=== PATIENT | female | born 1950 | race African-American/Black ===

== ENCOUNTER 2017-05-09 08:08 | Outpatient (CLI) | payer MEDICARE, MEDICAID ==
--- NOTE | 2017-05-09 10:52 | CT ---
ABDOMEN AND PELVIS CT NONCONTRAST: INDICATION: Panniculitis incisional hernia, pain. FINDINGS: Volume loss and/or scarring is seen at the imaged lower lung zones. There is prominence of the regio nal subcutaneous tissues with contact of the CT gantry which produces a prominent degree of beam-hard ening artifact. There is moderate distention of the gallbladder. Incomplete assessment of the solid abdominal viscera without IV contrast. Enteric contrast is seen within the colon and distal small b owel which is nondilated. Nonspecific mild prominence of the proximal aspect of the pancreas. There is retroperitoneal adenopathy. There is ventral herniation of nonobstructed and noninflamed colon at the central abdominal wall. Th ere is overlying edema with regard to surgical incision and surrounding prominent subcutaneous edema and skin thickening may relate to associated cellulitis. No obvious focal drainable fluid collection is seen. There is no pneumoperitoneum. Vascular disease is present. There is scattered osseous de generative change. IMPRESSION: 1. Mild-sized colon containing ventral abdominal wall hernia without associated inflammation or obst ruction. 2. Edema along the ventral abdominal wall incision with surrounding prominent subcutaneous edema and skin thickening. Correlate for evidence of cellulitis. No drainable fluid collection is seen. 3. Prominent soft tissues of the retroperitoneum reflective of adenopathy. There is a prominence to the proximal pancreas, as well. Contrast enhanced CT, as followup is warranted. POS: [facility]
== END 2017-05-09 08:09 | disposition home or self-care (01) ==
LOC: CT 08:08
PROVIDERS: ATTEND Surgery
DX: K43.2 Incisional hernia without obstruction or gangrene (principal); M79.3 Panniculitis, unspecified; R60.9 Edema, unspecified; M79.89 Other specified soft tissue disorders
CPT/HCPCS: 74176

== ENCOUNTER 2017-07-28 08:39 | Outpatient (CLI) | payer MEDICARE, MEDICAID ==
--- NOTE | 2017-07-28 11:27 | CT ---
CT ABDOMEN AND PELVIS WITHOUT IV CONTRAST: Date: 07/28/17 HISTORY: Anemia, right lower quadrant pain. FINDINGS: Comparison made with exam of 08/06/17. Absence of IV contrast reduces the sensitivity of exam, particularly for evaluation of solid organs. Oral contrast was administered. There is beam-hardening artifact due to patient's body habitus, which further reduces the sensitivity of the study. The lung bases are unremarkable. No free air or free fluid is seen in the abdomen or pelvis. No calci fied gallstones are seen. The small bowel loops are not abnormally dilated. There are vascular calcif ications without evidence of aneurysmal dilatation of the abdominal aorta. There are degenerative john nges in the spine. No calculi seen in the kidneys, ureters, or the urinary bladder. No hydroureteronephrosis is seen. Th ere is continued prominence of the region of the head of the pancreas. Retroperitoneal lymphadenopath y is stable. There are vascular calcifications without evidence of aneurysmal dilatation of the abdominal aorta. T here is a small fat-containing ventral hernia. A small portion of the transverse colon was seen herni ating into this hernia on the pervious study, but is not noted on the current exam. There are postop changes in the lower anterior abdominal wall. No definite evidence of appendicitis is seen. IMPRESSION: 1. Continued prominence of the head of the pancreas. Contrast enhanced CT scan or evaluation with en doscopic ultrasound would be helpful. 2. Stable retroperitoneal lymphadenopathy. 3. Small, fat-containing ventral hernia. POS: [facility]
== END 2017-07-28 08:40 | disposition home or self-care (01) ==
LOC: CT 08:39
PROVIDERS: ATTEND Internal Medicine Gastroenterology
DX: K59.03 Drug induced constipation (principal); E66.2 Morbid (severe) obesity with alveolar hypoventilation; K43.9 Ventral hernia without obstruction or gangrene; D64.9 Anemia, unspecified; R59.0 Localized enlarged lymph nodes; R93.3 Abnormal findings on diagnostic imaging of other parts of digestive tract
CPT/HCPCS: 74176

== ENCOUNTER 2020-06-05 13:18 | Inpatient (IN) | payer MEDICARE, MEDICAID ==
[2020-06-05 14:24] LABS: #Lymphocytes 1.2 thou/uL (1.20-3.40); #Monocytes 0.6 thou/uL (0.11-0.59); #Neutrophils 9.2 thou/uL (1.40-6.50); %Basophils 0.1 % (0.0-1.0); %Eosinophils 0.2 % (0.0-10.0); %Lymphocytes 10.7 % (21.0-51.0); %Monocytes 5.2 % (0.0-10.0); %Neutrophils 83.8 % (42.0-75.0); Hemoglobin 10.4 g/dL (12.0-16.0); Mean Corpuscular HGB CONC 30.2 g/dL (32.0-36.0); Mean Corpuscular Hemoglobin 32.4 pg (27.0-31.0); Mean Platelet Volume 8.6 fL (7.4-10.4); Platelet Count 174 thou/uL (130-400); RBC Distribution Width 13.1 % (11.5-14.5); Red Blood Cell (RBC) Count 3.22 mill/uL (4.20-5.40); White Blood Cell (WBC) Count 10.9 thou/uL (4.8-10.8)
[2020-06-05 14:38] LABS: Hypochromia SLIGHT = 6-15 cells (100X) (0-5/hpf); MDiff Complete? YES; Macrocytosis SLIGHT = 6-15 cells (100X) (0-5/hpf); Platelet Morphology Comment Appears Adequate; Polychromasia SLIGHT = 2-3 cells (100X) (0-2/hpf)
[2020-06-05 14:47] LABS: ALT (SGPT) 48 U/L (8-55); AST (SGOT) 89 U/L (5-34); Albumin 3.5 g/dL (3.4-4.8); Alkaline Phosphatase 99 U/L (40-110); Anion Gap 18 mmol/L (10-20); BUN (Urea Nitrogen) 45 mg/dL (9.8-20.1); Bilirubin, Total 0.9 mg/dL (0.2-1.2); Calc. Creatinine Clearance 0 mL/min (70-130); Calcium 9.3 mg/dL (7.8-10.44); Carbon Dioxide 32 mmol/L (23-31); Chloride 97 mmol/L (98-107); Globulin 4.2 g/dL (2.4-3.5); Glucose 99 mg/dL (83-110); Lipase 10 U/L (8-78); Potassium 4.7 mmol/L (3.5-5.1); Protein, Total 7.7 g/dL (5.8-8.1); Sodium 142 mmol/L (136-145)
[2020-06-05 15:03] LABS: Actual Bicarbonate (HCO3v) 30 mEq/L (22-28); Analyzer IN Cardio ER; Calcium, Ionized (venous) 1.02 mmol/L (1.16-1.32); Chloride (VBG) 100 mmol/L (98-106); Hemoglobin (Hb) 12.1 g/dL (11.7-16.1); Potassium (VBG) 4.76 mmol/L (3.70-5.30); Sodium 139.8 mmol/L (133-146); pH (venous) 7.33 (7.32-7.43)
[2020-06-05] MEDS ORDERED: Enoxaparin Sodium 60 MG/0.6 ML SYRINGE ONE (15:19)
[2020-06-05] MEDS ORDERED: Aspirin Chewable 81 MG TAB ONE (15:19)
[2020-06-05] MEDS ORDERED: Furosemide 40 MG/4 ML VIAL ONE (15:19)
[2020-06-05 15:22] LABS: CKMB 16.8 ng/mL (0-6.6)
[2020-06-05 17:36] LABS: SARS-CoV-2 NAA Rapid Test Not Detected (NotDetected)
[2020-06-05] MEDS ORDERED: Nitroglycerin 0.4 MG TAB (25 Tab Bottle) SL PRN (17:41)
[2020-06-05] MEDS ORDERED: Aspirin Chewable 81 MG TAB PO SCH (17:45)
[2020-06-05] MEDS ORDERED: Furosemide 40 MG TAB PO SCH (18:00)
[2020-06-05 18:06] LABS: Troponin I 8.061 ng/mL (< 0.028)
[2020-06-05] MEDS ORDERED: methylPREDNISolone Sod Succ 40 MG VIAL ONE (18:22)
[2020-06-05] MEDS: methylPREDNISolone Sod Succ 40 MG VIAL IVP SCH ×2 (18:28→23:57)
[2020-06-05] MEDS ORDERED: Acetaminophen 325 MG TAB ONE (20:27)
[2020-06-05 20:51] LABS: Troponin I 8.123 ng/mL (< 0.028)
[2020-06-05] MEDS ORDERED: Simvastatin 20 MG TAB PO SCH (21:00)
[2020-06-05] MEDS: Oxybutynin 5 MG TAB PO SCH (23:56)
[2020-06-05] MEDS: Nitroglycerin 2% Ointment 1 INCH/1 GM Packet TOP SCH (23:57)
[2020-06-06] MEDS ORDERED: methylPREDNISolone Sod Succ 40 MG VIAL ONE ×2 (00:01→06:39)
[2020-06-06] MEDS ORDERED: Nitroglycerin 2% Ointment 1 INCH/1 GM Packet ONE ×2 (00:01→06:39)
[2020-06-06] MEDS: Arformoterol 15 MCG/2 ML NEB NEB SCH ×3 (02:26→19:02)
[2020-06-06] MEDS: Mometasone 100 MCG/Formoterol 5 MCG 120 PUFF INHALER INH SCH ×2 (02:26→10:56)
[2020-06-06] MEDS: methylPREDNISolone Sod Succ 40 MG VIAL IVP SCH ×3 (06:45→17:51)
[2020-06-06] MEDS: Nitroglycerin 2% Ointment 1 INCH/1 GM Packet TOP SCH ×3 (06:45→22:47)
[2020-06-06 07:19] LABS: #Lymphocytes 1.1 thou/uL (1.20-3.40); #Monocytes 0.1 thou/uL (0.11-0.59); #Neutrophils 8.6 thou/uL (1.40-6.50); %Basophils 0.2 % (0.0-1.0); %Eosinophils 0.1 % (0.0-10.0); %Lymphocytes 10.8 % (21.0-51.0); %Monocytes 1.3 % (0.0-10.0); %Neutrophils 87.5 % (42.0-75.0); Hemoglobin 10.4 g/dL (12.0-16.0); Mean Corpuscular HGB CONC 30.8 g/dL (32.0-36.0); Mean Corpuscular Hemoglobin 33.1 pg (27.0-31.0); Mean Platelet Volume 8.6 fL (7.4-10.4); Platelet Count 186 thou/uL (130-400); RBC Distribution Width 13.2 % (11.5-14.5); Red Blood Cell (RBC) Count 3.14 mill/uL (4.20-5.40); White Blood Cell (WBC) Count 9.9 thou/uL (4.8-10.8)
[2020-06-06 07:28] LABS: ALT (SGPT) 45 U/L (8-55); AST (SGOT) 61 U/L (5-34); Albumin 3.6 g/dL (3.4-4.8); Alkaline Phosphatase 92 U/L (40-110); Anion Gap 16 mmol/L (10-20); BUN (Urea Nitrogen) 55 mg/dL (9.8-20.1); Bilirubin, Total 0.5 mg/dL (0.2-1.2); Calc. Creatinine Clearance 0 mL/min (70-130); Calcium 9.3 mg/dL (7.8-10.44); Carbon Dioxide 34 mmol/L (23-31); Cardiac Risk 2.7 (Less than 4.5); Chloride 98 mmol/L (98-107); Cholesterol 96 mg/dl (< 200 Desired); Globulin 4.2 g/dL (2.4-3.5); Glucose 127 mg/dL (83-110); HDL Cholesterol 35 mg/dL (>60 Neg Risk); LDL Cholesterol, Calculated 52 mg/dL; Potassium 5.3 mmol/L (3.5-5.1); Protein, Total 7.8 g/dL (5.8-8.1); Sodium 143 mmol/L (136-145); Triglycerides 46 mg/dL (Less than 150)
[2020-06-06] MEDS: Furosemide 20 MG TAB PO SCH (09:55)
[2020-06-06] MEDS: Oxybutynin 5 MG TAB PO SCH ×2 (09:55→22:22)
[2020-06-06] MEDS: Levothyroxine Sodium 75 MCG TAB PO SCH (09:55)
[2020-06-06] MEDS: Gabapentin 400 MG CAP PO SCH (09:56)
[2020-06-06] MEDS: Famotidine 20 MG TAB PO SCH (09:56)
[2020-06-06] MEDS: Allopurinol 100 MG TAB PO SCH (09:56)
[2020-06-06] MEDS ORDERED: Clopidogrel Bisulfate 300 MG TAB PO SCH (10:15)
[2020-06-06 10:28] LABS: Hemoglobin 10.6 g/dL (12.0-16.0); Platelet Count 178 thou/uL (130-400)
[2020-06-06] MEDS ORDERED: Sodium Chloride 0.9% 1,000 ML IV SCH (10:30)
[2020-06-06] MEDS: cefTRIAXone\\ROCEPHIN 1 GM in Sodium Chloride 0.9% 100 ML IVPB SCH (10:33)
[2020-06-06] MEDS: Heparin 10,000 UNITS/ 10 ML VIAL SLOW IVP SCH (11:58)
[2020-06-06] MEDS: Heparin 25,000 units/D5W 500 ML IVPB SCH (12:02)
[2020-06-06 12:49] LABS: CKMB 11.1 ng/mL (0-6.6)
[2020-06-06 12:52] LABS: #Lymphocytes 1.2 thou/uL (1.20-3.40); #Monocytes 0.2 thou/uL (0.11-0.59); #Neutrophils 8.2 thou/uL (1.40-6.50); %Basophils 0.2 % (0.0-1.0); %Eosinophils 0.2 % (0.0-10.0); %Lymphocytes 12.4 % (21.0-51.0); %Monocytes 2.4 % (0.0-10.0); %Neutrophils 84.8 % (42.0-75.0); Hemoglobin 10.7 g/dL (12.0-16.0); Mean Corpuscular Hemoglobin 32.1 pg (27.0-31.0); Mean Platelet Volume 8.7 fL (7.4-10.4); Platelet Count 172 thou/uL (130-400); RBC Distribution Width 13.3 % (11.5-14.5); Red Blood Cell (RBC) Count 3.32 mill/uL (4.20-5.40); White Blood Cell (WBC) Count 9.6 thou/uL (4.8-10.8)
[2020-06-06 13:02] LABS: Anion Gap 22 mmol/L (10-20); BUN (Urea Nitrogen) 55 mg/dL (9.8-20.1); Calc. Creatinine Clearance 52 mL/min (70-130); Calcium 8.9 mg/dL (7.8-10.44); Carbon Dioxide 27 mmol/L (23-31); Chloride 98 mmol/L (98-107); Glucose 127 mg/dL (83-110); Potassium 5.7 mmol/L (3.5-5.1); Sodium 141 mmol/L (136-145)
[2020-06-06 13:10] LABS: Lactic Acid 1.2 mmol/L (0.5-2.2)
[2020-06-06 13:33] LABS: MDiff Complete? YES; Macrocytosis SLIGHT = 6-15 cells (100X) (0-5/hpf); Platelet Morphology Comment Appears Adequate; Polychromasia SLIGHT = 2-3 cells (100X) (0-2/hpf)
[2020-06-06 14:00] LABS: Actual Bicarbonate (HCO3a) 38.3 mEq/L (22-28); Base Excess (BEa) 7.5 mEq/L (-2.0 to +3.0); Calcium, Ionized (arterial) 1.15 mmol/L (1.12-1.30); Carboxyhemoglobin (COHb) 0.8 gm% (0.0-3.0); Hemoglobin (Hb) 11.1 g/dL (12.0-16.0); O2 Tension (PaO2), arterial 103.2 mmHg (> 70.0); Potassium - ABG Lab 5.35 mmol/L (3.70-5.30)
[2020-06-06 14:05] LABS: pH, Arterial 7.21 (7.35-7.45)
[2020-06-06 14:06] LABS: CO2 Tension 98.6 mmHg (35.0-45.0); Puncture Site RBA
[2020-06-06] MEDS ORDERED: Furosemide 40 MG/4 ML VIAL SLOW IVP SCH (14:30)
[2020-06-06 14:35] LABS: Critical Call Chem Troponin I RESULT DECREASING
[2020-06-06 14:40] LABS: Critical Call CKMB RESULT DECREASING
[2020-06-06 16:37] LABS: Actual Bicarbonate (HCO3a) 36.1 mEq/L (22-28); Base Excess (BEa) 6.4 mEq/L (-2.0 to +3.0); Calcium, Ionized (arterial) 1.14 mmol/L (1.12-1.30); Carboxyhemoglobin (COHb) 0.7 gm% (0.0-3.0); Hemoglobin (Hb) 10.7 g/dL (12.0-16.0); Potassium - ABG Lab 5.23 mmol/L (3.70-5.30)
[2020-06-06 16:38] LABS: CO2 Tension 87.4 mmHg (35.0-45.0); pH, Arterial 7.23 (7.35-7.45)
[2020-06-06 16:39] LABS: O2 Tension (PaO2), arterial 55.5 mmHg (> 70.0)
[2020-06-06 16:40] LABS: Puncture Site LRA
[2020-06-06] MEDS ORDERED: Mometasone 200 MCG/Formoterol 5 MCG 120 PUFF INHALER INH SCH (18:30)
[2020-06-06] MEDS: Mometasone 200 MCG/Formoterol 5 MCG 120 PUFF INHALER INH SCH (19:04)
[2020-06-06] MEDS ORDERED: Atorvastatin Calcium 40 MG TAB PO SCH (21:00)
[2020-06-06] MEDS ORDERED: Calcium Gluconate 4.6 MEQ in Sodium Chloride 0.9% 100 ML IVPB SCH (21:55)
[2020-06-07 00:21] LABS: Anion Gap 19 mmol/L (10-20); BUN (Urea Nitrogen) 59 mg/dL (9.8-20.1); Calc. Creatinine Clearance 49 mL/min (70-130); Carbon Dioxide 32 mmol/L (23-31); Chloride 95 mmol/L (98-107); Glucose 124 mg/dL (83-110); Potassium 5.4 mmol/L (3.5-5.1); Sodium 141 mmol/L (136-145)
[2020-06-07] MEDS: methylPREDNISolone Sod Succ 40 MG VIAL IVP SCH ×4 (01:03→18:23)
[2020-06-07] MEDS: Nitroglycerin 2% Ointment 1 INCH/1 GM Packet TOP SCH ×2 (06:31→13:31)
[2020-06-07] MEDS: Levothyroxine Sodium 75 MCG TAB PO SCH (06:31)
[2020-06-07] MEDS: Arformoterol 15 MCG/2 ML NEB NEB SCH ×2 (07:36→18:54)
[2020-06-07] MEDS: Mometasone 200 MCG/Formoterol 5 MCG 120 PUFF INHALER INH SCH ×2 (07:39→18:55)
[2020-06-07] MEDS: Gabapentin 400 MG CAP PO SCH (08:43)
[2020-06-07] MEDS: Allopurinol 100 MG TAB PO SCH (08:43)
[2020-06-07] MEDS: Furosemide 20 MG TAB PO SCH (08:43)
[2020-06-07] MEDS: Aspirin Chewable 81 MG TAB PO SCH (08:44)
[2020-06-07] MEDS: Famotidine 20 MG TAB PO SCH (08:44)
[2020-06-07] MEDS: Oxybutynin 5 MG TAB PO SCH ×2 (08:45→21:03)
[2020-06-07] MEDS ORDERED: Furosemide 20 MG TAB PO SCH (09:00)
[2020-06-07] MEDS ORDERED: Citalopram 20 MG TAB PO SCH (09:00)
[2020-06-07] MEDS ORDERED: FLU VACC QS2020-21(65YR UP)/PF 240 MCG/0.7 ML SYRINGE IM ONE (09:00)
[2020-06-07] MEDS ORDERED: Clopidogrel Bisulfate 75 MG TAB PO SCH (09:00)
[2020-06-07] MEDS ORDERED: Levothyroxine Sodium 50 MCG TAB PO SCH (09:00)
[2020-06-07 09:31] LABS: #Monocytes 0.3 thou/uL (0.11-0.59); #Neutrophils 6.9 thou/uL (1.40-6.50); %Eosinophils 0.1 % (0.0-10.0); %Lymphocytes 12.5 % (21.0-51.0); %Monocytes 3.5 % (0.0-10.0); %Neutrophils 83.9 % (42.0-75.0); Hemoglobin 9.7 g/dL (12.0-16.0); Mean Corpuscular HGB CONC 31.5 g/dL (32.0-36.0); Mean Corpuscular Hemoglobin 32.7 pg (27.0-31.0); Mean Platelet Volume 8.5 fL (7.4-10.4); Platelet Count 176 thou/uL (130-400); RBC Distribution Width 13.1 % (11.5-14.5); Red Blood Cell (RBC) Count 2.95 mill/uL (4.20-5.40); White Blood Cell (WBC) Count 8.2 thou/uL (4.8-10.8)
[2020-06-07 09:45] LABS: Anion Gap 19 mmol/L (10-20); BUN (Urea Nitrogen) 64 mg/dL (9.8-20.1); Calc. Creatinine Clearance 47 mL/min (70-130); Calcium 8.5 mg/dL (7.8-10.44); Carbon Dioxide 29 mmol/L (23-31); Chloride 96 mmol/L (98-107); Glucose 197 mg/dL (83-110); PTT 190.3 sec (22.9-36.1); Sodium 139 mmol/L (136-145)
[2020-06-07 09:55] LABS: MDiff Complete? YES; Platelet Morphology Comment Appears Adequate; Polychromasia SLIGHT = 2-3 cells (100X) (0-2/hpf)
[2020-06-07] MEDS: cefTRIAXone\\ROCEPHIN 1 GM in Sodium Chloride 0.9% 100 ML IVPB SCH (10:15)
[2020-06-07] MEDS: hydrALAZINE 25 MG TAB PO SCH ×2 (15:10→21:03)
[2020-06-07] MEDS: Isosorbide Dinitrate 5 MG TAB PO SCH ×2 (15:10→22:30)
[2020-06-07] MEDS: Carvedilol 3.125 MG TAB PO SCH (17:12)
[2020-06-07] MEDS: Heparin 10,000 UNITS/ 10 ML VIAL SLOW IVP SCH (20:01)
[2020-06-07] MEDS: Heparin 25,000 units/D5W 500 ML IVPB SCH (20:06)
[2020-06-07] MEDS: Atorvastatin Calcium 40 MG TAB PO SCH (21:04)
[2020-06-08] MEDS: methylPREDNISolone Sod Succ 40 MG VIAL IVP SCH ×2 (00:13→05:54)
[2020-06-08] MEDS: Heparin 10,000 UNITS/ 10 ML VIAL SLOW IVP SCH (02:59)
[2020-06-08] MEDS: Levothyroxine Sodium 75 MCG TAB PO SCH (05:54)
[2020-06-08] MEDS: Arformoterol 15 MCG/2 ML NEB NEB SCH ×2 (06:47→19:15)
[2020-06-08] MEDS: Mometasone 200 MCG/Formoterol 5 MCG 120 PUFF INHALER INH SCH ×2 (06:48→19:18)
[2020-06-08] MEDS: Allopurinol 100 MG TAB PO SCH (08:37)
[2020-06-08] MEDS: Famotidine 20 MG TAB PO SCH (08:37)
[2020-06-08] MEDS: Gabapentin 400 MG CAP PO SCH (08:37)
[2020-06-08] MEDS: Carvedilol 3.125 MG TAB PO SCH ×2 (08:38→16:58)
[2020-06-08] MEDS: Isosorbide Dinitrate 5 MG TAB PO SCH (08:38)
[2020-06-08] MEDS: predniSONE 5 MG TAB PO SCH (08:38)
[2020-06-08] MEDS: Furosemide 20 MG TAB PO SCH (08:38)
[2020-06-08] MEDS: Oxybutynin 5 MG TAB PO SCH ×2 (08:38→20:01)
[2020-06-08] MEDS: Aspirin Chewable 81 MG TAB PO SCH (08:38)
[2020-06-08] MEDS: hydrALAZINE 25 MG TAB PO SCH ×3 (08:39→20:01)
[2020-06-08 09:31] LABS: Hemoglobin 9.7 g/dL (12.0-16.0); Platelet Count 190 thou/uL (130-400)
[2020-06-08] MEDS: cefTRIAXone\\ROCEPHIN 1 GM in Sodium Chloride 0.9% 100 ML IVPB SCH (09:42)
[2020-06-08 09:53] LABS: PTT 125.7 sec (22.9-36.1)
[2020-06-08] MEDS: Heparin 25,000 units/D5W 500 ML IVPB SCH (17:38)
[2020-06-08 17:45] LABS: Hemoglobin 9.8 g/dL (12.0-16.0); Mean Corpuscular HGB CONC 30.6 g/dL (32.0-36.0); Mean Corpuscular Hemoglobin 31.7 pg (27.0-31.0); Mean Platelet Volume 8.6 fL (7.4-10.4); Platelet Count 192 thou/uL (130-400); RBC Distribution Width 13.6 % (11.5-14.5); Red Blood Cell (RBC) Count 3.08 mill/uL (4.20-5.40); White Blood Cell (WBC) Count 7.9 thou/uL (4.8-10.8)
[2020-06-08 17:46] LABS: #Lymphocytes 0.9 thou/uL (1.20-3.40); #Monocytes 0.3 thou/uL (0.11-0.59); #Neutrophils 6.7 thou/uL (1.40-6.50); %Eosinophils 0.4 % (0.0-10.0); %Lymphocytes 11.8 % (21.0-51.0); %Monocytes 3.2 % (0.0-10.0); %Neutrophils 84.6 % (42.0-75.0)
[2020-06-08 18:04] LABS: Anion Gap 17 mmol/L (10-20); BUN (Urea Nitrogen) 82 mg/dL (9.8-20.1); Calc. Creatinine Clearance 41 mL/min (70-130); Calcium 8.8 mg/dL (7.8-10.44); Carbon Dioxide 33 mmol/L (23-31); Chloride 94 mmol/L (98-107); Glucose 170 mg/dL (83-110); Potassium 5.5 mmol/L (3.5-5.1); Sodium 138 mmol/L (136-145)
[2020-06-08] MEDS: Atorvastatin Calcium 40 MG TAB PO SCH (20:01)
[2020-06-09 04:13] LABS: Anion Gap 19 mmol/L (10-20); BUN (Urea Nitrogen) 86 mg/dL (9.8-20.1); Calc. Creatinine Clearance 40 mL/min (70-130); Calcium 8.3 mg/dL (7.8-10.44); Carbon Dioxide 29 mmol/L (23-31); Chloride 93 mmol/L (98-107); Glucose 187 mg/dL (83-110); Potassium 5.1 mmol/L (3.5-5.1); Sodium 136 mmol/L (136-145)
[2020-06-09 04:48] LABS: Band 6 % (5-11); Hemoglobin 9.2 g/dL (12.0-16.0); Lymphocytes 15 % (21-51); MDiff Complete? YES; Mean Corpuscular HGB CONC 31.4 g/dL (32.0-36.0); Mean Corpuscular Hemoglobin 32.3 pg (27.0-31.0); Mean Platelet Volume 8.8 fL (7.4-10.4); Monocytes 7 % (0-10); Myelocyte 1 % (0-0); Neutrophil 71 % (42-75); Platelet Count 173 thou/uL (130-400); RBC Distribution Width 13.7 % (11.5-14.5); Red Blood Cell (RBC) Count 2.86 mill/uL (4.20-5.40); White Blood Cell (WBC) Count 7.3 thou/uL (4.8-10.8)
[2020-06-09] MEDS: Levothyroxine Sodium 75 MCG TAB PO SCH (05:55)
[2020-06-09] MEDS: Arformoterol 15 MCG/2 ML NEB NEB SCH ×2 (06:58→19:01)
[2020-06-09] MEDS: Mometasone 200 MCG/Formoterol 5 MCG 120 PUFF INHALER INH SCH ×2 (06:59→19:01)
[2020-06-09] MEDS: Oxybutynin 5 MG TAB PO SCH ×2 (08:30→20:08)
[2020-06-09] MEDS: Allopurinol 100 MG TAB PO SCH (08:30)
[2020-06-09] MEDS: predniSONE 5 MG TAB PO SCH (08:30)
[2020-06-09] MEDS: Gabapentin 400 MG CAP PO SCH (08:30)
[2020-06-09] MEDS: Famotidine 20 MG TAB PO SCH (08:30)
[2020-06-09] MEDS: Aspirin Chewable 81 MG TAB PO SCH (08:30)
[2020-06-09] MEDS: Carvedilol 3.125 MG TAB PO SCH ×2 (08:30→17:13)
[2020-06-09] MEDS: hydrALAZINE 25 MG TAB PO SCH ×3 (08:31→20:07)
[2020-06-09] MEDS: Furosemide 20 MG TAB PO SCH (08:31)
[2020-06-09] MEDS: Heparin 25,000 units/D5W 500 ML IVPB SCH (08:34)
[2020-06-09] MEDS: Atorvastatin Calcium 40 MG TAB PO SCH (20:07)
[2020-06-10 04:04] LABS: Anion Gap 17 mmol/L (10-20); BUN (Urea Nitrogen) 92 mg/dL (9.8-20.1); Calc. Creatinine Clearance 41 mL/min (70-130); Calcium 8.5 mg/dL (7.8-10.44); Carbon Dioxide 30 mmol/L (23-31); Chloride 94 mmol/L (98-107); Glucose 139 mg/dL (83-110); Potassium 4.4 mmol/L (3.5-5.1); Sodium 137 mmol/L (136-145)
[2020-06-10 05:22] LABS: Band 8 % (5-11); Hemoglobin 9.2 g/dL (12.0-16.0); Lymphocytes 25 % (21-51); MDiff Complete? YES; Mean Corpuscular HGB CONC 31.5 g/dL (32.0-36.0); Mean Corpuscular Hemoglobin 32.1 pg (27.0-31.0); Mean Platelet Volume 8.6 fL (7.4-10.4); Monocytes 2 % (0-10); Neutrophil 65 % (42-75); Platelet Count 159 thou/uL (130-400); RBC Distribution Width 13.6 % (11.5-14.5); Red Blood Cell (RBC) Count 2.87 mill/uL (4.20-5.40); White Blood Cell (WBC) Count 9.4 thou/uL (4.8-10.8)
[2020-06-10] MEDS: Levothyroxine Sodium 75 MCG TAB PO SCH (06:10)
[2020-06-10] MEDS: Arformoterol 15 MCG/2 ML NEB NEB SCH ×2 (08:24→18:22)
[2020-06-10] MEDS: Mometasone 200 MCG/Formoterol 5 MCG 120 PUFF INHALER INH SCH ×2 (08:25→18:22)
[2020-06-10] MEDS: Aspirin Chewable 81 MG TAB PO SCH (09:03)
[2020-06-10] MEDS: Oxybutynin 5 MG TAB PO SCH ×2 (09:03→20:02)
[2020-06-10] MEDS: Allopurinol 100 MG TAB PO SCH (09:03)
[2020-06-10] MEDS: Carvedilol 3.125 MG TAB PO SCH ×2 (09:03→18:04)
[2020-06-10] MEDS: Clopidogrel Bisulfate 75 MG TAB PO SCH (09:03)
[2020-06-10] MEDS: Famotidine 20 MG TAB PO SCH (09:03)
[2020-06-10] MEDS: predniSONE 5 MG TAB PO SCH (09:03)
[2020-06-10] MEDS: Furosemide 20 MG TAB PO SCH (09:03)
[2020-06-10] MEDS: hydrALAZINE 25 MG TAB PO SCH ×3 (09:04→20:02)
[2020-06-10] MEDS: Gabapentin 400 MG CAP PO SCH (09:04)
[2020-06-10] MEDS ORDERED: Acetaminophen/Codeine 30-300mg Tablet PO PRN ×2 (13:52)
[2020-06-10] MEDS: Atorvastatin Calcium 10 MG TAB PO SCH (20:02)
[2020-06-11 03:57] LABS: #Eosinphils 0.2 thou/uL (0.0-0.7); #Lymphocytes 1.6 thou/uL (1.20-3.40); #Neutrophils 7.2 thou/uL (1.40-6.50); %Basophils 0.2 % (0.0-1.0); %Eosinophils 1.6 % (0.0-10.0); %Lymphocytes 15.6 % (21.0-51.0); %Monocytes 10.3 % (0.0-10.0); %Neutrophils 72.2 % (42.0-75.0); Hemoglobin 10.5 g/dL (12.0-16.0); Mean Corpuscular HGB CONC 30.6 g/dL (32.0-36.0); Mean Corpuscular Hemoglobin 31.5 pg (27.0-31.0); Mean Platelet Volume 9.2 fL (7.4-10.4); Platelet Count 157 thou/uL (130-400); RBC Distribution Width 13.6 % (11.5-14.5); Red Blood Cell (RBC) Count 3.35 mill/uL (4.20-5.40); White Blood Cell (WBC) Count 9.9 thou/uL (4.8-10.8)
[2020-06-11 04:19] LABS: Anion Gap 19 mmol/L (10-20); BUN (Urea Nitrogen) 93 mg/dL (9.8-20.1); Calc. Creatinine Clearance 41 mL/min (70-130); Calcium 9.2 mg/dL (7.8-10.44); Carbon Dioxide 30 mmol/L (23-31); Chloride 94 mmol/L (98-107); Glucose 101 mg/dL (83-110); Potassium 5.1 mmol/L (3.5-5.1); Sodium 138 mmol/L (136-145)
[2020-06-11] MEDS: cloNIDine 0.1 MG TAB PO PRN (05:10)
[2020-06-11] MEDS: Levothyroxine Sodium 75 MCG TAB PO SCH (05:10)
[2020-06-11] MEDS: Mometasone 200 MCG/Formoterol 5 MCG 120 PUFF INHALER INH SCH ×2 (07:25→18:45)
[2020-06-11] MEDS: Arformoterol 15 MCG/2 ML NEB NEB SCH ×2 (07:25→18:47)
[2020-06-11] MEDS: Allopurinol 100 MG TAB PO SCH (10:05)
[2020-06-11] MEDS: Famotidine 20 MG TAB PO SCH (10:05)
[2020-06-11] MEDS: Gabapentin 400 MG CAP PO SCH (10:05)
[2020-06-11] MEDS: predniSONE 5 MG TAB PO SCH (10:05)
[2020-06-11] MEDS: Cholecalciferol 1,000 UNITS (25 MCG) TAB PO SCH (10:05)
[2020-06-11] MEDS: Carvedilol 3.125 MG TAB PO SCH ×2 (10:06→16:21)
[2020-06-11] MEDS: Oxybutynin 5 MG TAB PO SCH ×2 (10:06→21:25)
[2020-06-11] MEDS: Clopidogrel Bisulfate 75 MG TAB PO SCH (10:06)
[2020-06-11] MEDS: Furosemide 20 MG TAB PO SCH (10:06)
[2020-06-11] MEDS: Aspirin Chewable 81 MG TAB PO SCH (10:06)
[2020-06-11] MEDS: hydrALAZINE 25 MG TAB PO SCH ×3 (10:06→21:25)
[2020-06-11] MEDS: Atorvastatin Calcium 10 MG TAB PO SCH (21:25)
[2020-06-12 04:23] LABS: Anion Gap 17 mmol/L (10-20); BUN (Urea Nitrogen) 92 mg/dL (9.8-20.1); Calc. Creatinine Clearance 42 mL/min (70-130); Calcium 9.1 mg/dL (7.8-10.44); Carbon Dioxide 32 mmol/L (23-31); Chloride 96 mmol/L (98-107); Glucose 87 mg/dL (83-110); Sodium 140 mmol/L (136-145)
[2020-06-12] MEDS: Levothyroxine Sodium 75 MCG TAB PO SCH (06:41)
[2020-06-12 06:57] LABS: #Eosinphils 0.4 thou/uL (0.0-0.7); #Lymphocytes 1.2 thou/uL (1.20-3.40); #Monocytes 0.7 thou/uL (0.11-0.59); #Neutrophils 7.8 thou/uL (1.40-6.50); %Basophils 0.4 % (0.0-1.0); %Eosinophils 3.7 % (0.0-10.0); %Lymphocytes 12.2 % (21.0-51.0); %Monocytes 6.4 % (0.0-10.0); %Neutrophils 77.2 % (42.0-75.0); Hemoglobin 10.1 g/dL (12.0-16.0); Mean Corpuscular HGB CONC 31.4 g/dL (32.0-36.0); Mean Corpuscular Hemoglobin 32.1 pg (27.0-31.0); Mean Platelet Volume 9.1 fL (7.4-10.4); Platelet Count 152 thou/uL (130-400); RBC Distribution Width 13.6 % (11.5-14.5); Red Blood Cell (RBC) Count 3.16 mill/uL (4.20-5.40); White Blood Cell (WBC) Count 10.2 thou/uL (4.8-10.8)
[2020-06-12] MEDS: Mometasone 200 MCG/Formoterol 5 MCG 120 PUFF INHALER INH SCH ×2 (07:28→19:05)
[2020-06-12] MEDS: Arformoterol 15 MCG/2 ML NEB NEB SCH ×2 (07:28→19:05)
[2020-06-12] MEDS ORDERED: Atorvastatin Calcium 10 MG TAB PO SCH ×2 (08:55→09:10)
[2020-06-12] MEDS: Oxybutynin 5 MG TAB PO SCH ×2 (09:25→21:36)
[2020-06-12] MEDS: Famotidine 20 MG TAB PO SCH (09:25)
[2020-06-12] MEDS: hydrALAZINE 25 MG TAB PO SCH ×3 (09:25→21:37)
[2020-06-12] MEDS: Aspirin Chewable 81 MG TAB PO SCH (09:25)
[2020-06-12] MEDS: Carvedilol 3.125 MG TAB PO SCH ×2 (09:25→15:31)
[2020-06-12] MEDS: Furosemide 20 MG TAB PO SCH (09:26)
[2020-06-12] MEDS: Allopurinol 100 MG TAB PO SCH (09:26)
[2020-06-12] MEDS: predniSONE 5 MG TAB PO SCH (09:26)
[2020-06-12] MEDS: Gabapentin 400 MG CAP PO SCH (09:26)
[2020-06-12] MEDS: Clopidogrel Bisulfate 75 MG TAB PO SCH (09:26)
[2020-06-12] MEDS: Cholecalciferol 1,000 UNITS (25 MCG) TAB PO SCH (09:26)
[2020-06-12] MEDS: Atorvastatin Calcium 40 MG TAB PO SCH (21:37)
[2020-06-13] MEDS: Levothyroxine Sodium 75 MCG TAB PO SCH (05:17)
[2020-06-13 06:49] LABS: Anion Gap 17 mmol/L (10-20); BUN (Urea Nitrogen) 91 mg/dL (9.8-20.1); Calc. Creatinine Clearance 42 mL/min (70-130); Calcium 9.1 mg/dL (7.8-10.44); Carbon Dioxide 31 mmol/L (23-31); Chloride 97 mmol/L (98-107); Glucose 110 mg/dL (83-110); Potassium 4.8 mmol/L (3.5-5.1); Sodium 140 mmol/L (136-145)
[2020-06-13 06:51] LABS: #Eosinphils 0.4 thou/uL (0.0-0.7); #Lymphocytes 1.4 thou/uL (1.20-3.40); #Monocytes 0.4 thou/uL (0.11-0.59); #Neutrophils 9.5 thou/uL (1.40-6.50); %Basophils 0.1 % (0.0-1.0); %Eosinophils 3.6 % (0.0-10.0); %Lymphocytes 11.7 % (21.0-51.0); %Monocytes 3.7 % (0.0-10.0); %Neutrophils 80.8 % (42.0-75.0); Eosinophils 2 % (0-10); Hemoglobin 9.9 g/dL (12.0-16.0); Lymphocytes 13 % (21-51); MDiff Complete? YES; Mean Corpuscular HGB CONC 31.2 g/dL (32.0-36.0); Mean Corpuscular Hemoglobin 31.8 pg (27.0-31.0); Mean Platelet Volume 9.2 fL (7.4-10.4); Monocytes 14 % (0-10); Neutrophil 71 % (42-75); Platelet Count 148 thou/uL (130-400); RBC Distribution Width 13.9 % (11.5-14.5); Red Blood Cell (RBC) Count 3.09 mill/uL (4.20-5.40); White Blood Cell (WBC) Count 11.8 thou/uL (4.8-10.8)
[2020-06-13] MEDS: Arformoterol 15 MCG/2 ML NEB NEB SCH ×2 (07:51→19:29)
[2020-06-13] MEDS: Mometasone 200 MCG/Formoterol 5 MCG 120 PUFF INHALER INH SCH ×2 (07:52→19:30)
[2020-06-13] MEDS: Aspirin Chewable 81 MG TAB PO SCH (08:44)
[2020-06-13] MEDS: Gabapentin 400 MG CAP PO SCH (08:44)
[2020-06-13] MEDS: Famotidine 20 MG TAB PO SCH (08:44)
[2020-06-13] MEDS: Cholecalciferol 1,000 UNITS (25 MCG) TAB PO SCH (08:44)
[2020-06-13] MEDS: Oxybutynin 5 MG TAB PO SCH ×2 (08:45→20:53)
[2020-06-13] MEDS: Allopurinol 100 MG TAB PO SCH (08:45)
[2020-06-13] MEDS: predniSONE 5 MG TAB PO SCH (08:45)
[2020-06-13] MEDS: Carvedilol 3.125 MG TAB PO SCH ×2 (08:45→16:31)
[2020-06-13] MEDS: Clopidogrel Bisulfate 75 MG TAB PO SCH (08:45)
[2020-06-13] MEDS: Furosemide 20 MG TAB PO SCH (08:45)
[2020-06-13] MEDS: hydrALAZINE 25 MG TAB PO SCH ×3 (08:45→20:53)
[2020-06-13] MEDS ORDERED: Tuberculin PPD 0.1 ML VIAL I-DERMAL SCH (11:30)
[2020-06-13 12:03] LABS: HBSAB Concentration Less than 8.00 mIU/mL; HBSAg Index 0.21 S/CO (0-0.99); Hep B Core Total Ab Non-Reactive (NonReactive); Hep B Core Total Index 0.07 S/CO (0-0.79); Hep B Surf AB Non-Reactive (NonReactive); Hep B Surf Ag Non-Reactive S/CO (NonReactive); Hep C IgG Ab Non-Reactive (NonReactive); Hep C Index 0.07 S/CO (0-0.79)
[2020-06-13] MEDS ORDERED: CEFAZOLIN 2 GM in Premix Bag 1 BAG IVPB SCH (13:45)
[2020-06-13] MEDS: Atorvastatin Calcium 40 MG TAB PO SCH (20:53)
[2020-06-14] MEDS: Carvedilol 3.125 MG TAB PO SCH ×2 (05:45→17:26)
[2020-06-14] MEDS: Levothyroxine Sodium 75 MCG TAB PO SCH (05:45)
[2020-06-14 06:02] LABS: #Eosinphils 0.5 thou/uL (0.0-0.7); #Lymphocytes 1.4 thou/uL (1.20-3.40); #Monocytes 0.6 thou/uL (0.11-0.59); #Neutrophils 8.4 thou/uL (1.40-6.50); %Basophils 0.1 % (0.0-1.0); %Eosinophils 4.4 % (0.0-10.0); %Lymphocytes 12.9 % (21.0-51.0); %Monocytes 5.6 % (0.0-10.0); Hemoglobin 10.2 g/dL (12.0-16.0); Mean Corpuscular HGB CONC 31.2 g/dL (32.0-36.0); Mean Platelet Volume 9.3 fL (7.4-10.4); Platelet Count 163 thou/uL (130-400); RBC Distribution Width 13.7 % (11.5-14.5); Red Blood Cell (RBC) Count 3.18 mill/uL (4.20-5.40); White Blood Cell (WBC) Count 10.9 thou/uL (4.8-10.8)
[2020-06-14 06:22] LABS: Anion Gap 14 mmol/L (10-20); BUN (Urea Nitrogen) 85 mg/dL (9.8-20.1); Calc. Creatinine Clearance 44 mL/min (70-130); Calcium 9.4 mg/dL (7.8-10.44); Carbon Dioxide 34 mmol/L (23-31); Chloride 97 mmol/L (98-107); Glucose 100 mg/dL (83-110); Potassium 4.9 mmol/L (3.5-5.1); Sodium 140 mmol/L (136-145)
[2020-06-14] MEDS: Mometasone 200 MCG/Formoterol 5 MCG 120 PUFF INHALER INH SCH ×2 (07:40→18:17)
[2020-06-14] MEDS: Arformoterol 15 MCG/2 ML NEB NEB SCH ×2 (07:41→18:16)
[2020-06-14] MEDS: predniSONE 5 MG TAB PO SCH (11:02)
[2020-06-14] MEDS: Allopurinol 100 MG TAB PO SCH (11:02)
[2020-06-14] MEDS: Clopidogrel Bisulfate 75 MG TAB PO SCH (11:03)
[2020-06-14] MEDS: Cholecalciferol 1,000 UNITS (25 MCG) TAB PO SCH (11:03)
[2020-06-14] MEDS: Aspirin Chewable 81 MG TAB PO SCH (11:03)
[2020-06-14] MEDS: Gabapentin 400 MG CAP PO SCH (11:04)
[2020-06-14] MEDS: Famotidine 20 MG TAB PO SCH (11:04)
[2020-06-14] MEDS: Furosemide 20 MG TAB PO SCH (11:04)
[2020-06-14] MEDS: Oxybutynin 5 MG TAB PO SCH ×2 (11:05→22:44)
[2020-06-14] MEDS: hydrALAZINE 25 MG TAB PO SCH ×3 (11:05→22:44)
[2020-06-14] MEDS ORDERED: Heparin 10,000 UNITS/ 10 ML VIAL ONE ×2 (14:23→14:49)
[2020-06-14] MEDS ORDERED: Bupivacaine PF 0.5% 30 ML VIAL ONE (14:49)
[2020-06-14] MEDS ORDERED: Heparin 5,000 UNITS/ML VIAL ONE (14:49)
[2020-06-14] MEDS ORDERED: Sodium Chloride 0.9% 20 ML ONE (14:49)
[2020-06-14] MEDS ORDERED: Protamine Sulfate 50 MG/5 ML VIAL ONE (14:49)
[2020-06-14] MEDS ORDERED: Lidocaine 1% w/Epinephrine 1:100K 20 ML VIAL ONE (14:49)
[2020-06-14] MEDS ORDERED: Sodium Chloride 0.9% 10 ML ONE (14:50)
[2020-06-14] MEDS ORDERED: Midazolam HCl 2 mg/2 ml Vial ONE (16:25)
[2020-06-14] MEDS ORDERED: Ketamine 50 MG/ML (10ML VIAL) ONE (16:26)
[2020-06-14] MEDS ORDERED: Esmolol 100 MG/10 ML VIAL ONE (16:50)
[2020-06-14] MEDS ORDERED: PROPOFOL 200 MG/20 ML VIAL ONE (16:50)
[2020-06-14] MEDS ORDERED: traMADol HCl 50 MG TAB PO PRN (17:05)
[2020-06-14] MEDS ORDERED: Promethazine HCl 25 MG/ML VIAL IM PRN (17:18)
[2020-06-14] MEDS ORDERED: Promethazine HCl 25 MG/ML VIAL SLOW IVP PRN (17:18)
[2020-06-14] MEDS ORDERED: Ondansetron HCl/PF 4 MG/2 ML Vial IVP PRN (17:18)
[2020-06-14] MEDS: Atorvastatin Calcium 40 MG TAB PO SCH (22:44)
[2020-06-15] MEDS ORDERED: Acetaminophen/Codeine 30-300mg Tablet PO SCH (02:15)
[2020-06-15] MEDS: cloNIDine 0.1 MG TAB PO PRN (04:07)
[2020-06-15 04:43] LABS: #Eosinphils 0.4 thou/uL (0.0-0.7); #Lymphocytes 1.4 thou/uL (1.20-3.40); #Monocytes 0.6 thou/uL (0.11-0.59); #Neutrophils 7.5 thou/uL (1.40-6.50); %Basophils 0.1 % (0.0-1.0); %Eosinophils 4.5 % (0.0-10.0); %Lymphocytes 13.9 % (21.0-51.0); %Monocytes 5.9 % (0.0-10.0); %Neutrophils 75.6 % (42.0-75.0); Hemoglobin 9.3 g/dL (12.0-16.0); Mean Corpuscular HGB CONC 30.8 g/dL (32.0-36.0); Mean Corpuscular Hemoglobin 31.9 pg (27.0-31.0); Mean Platelet Volume 9.1 fL (7.4-10.4); Platelet Count 158 thou/uL (130-400); RBC Distribution Width 13.7 % (11.5-14.5); Red Blood Cell (RBC) Count 2.92 mill/uL (4.20-5.40)
[2020-06-15 05:18] LABS: Anion Gap 13 mmol/L (10-20); BUN (Urea Nitrogen) 63 mg/dL (9.8-20.1); Calc. Creatinine Clearance 51 mL/min (70-130); Calcium 9.2 mg/dL (7.8-10.44); Carbon Dioxide 35 mmol/L (23-31); Chloride 100 mmol/L (98-107); Glucose 73 mg/dL (83-110); Potassium 4.6 mmol/L (3.5-5.1); Sodium 143 mmol/L (136-145)
[2020-06-15] MEDS: Levothyroxine Sodium 75 MCG TAB PO SCH (05:43)
[2020-06-15] MEDS: Mometasone 200 MCG/Formoterol 5 MCG 120 PUFF INHALER INH SCH ×2 (07:39→19:15)
[2020-06-15] MEDS: Arformoterol 15 MCG/2 ML NEB NEB SCH ×2 (07:40→19:14)
[2020-06-15 11:17] VITALS: BMI 79.2
[2020-06-15] MEDS: hydrALAZINE 25 MG TAB PO SCH ×3 (12:50→20:42)
[2020-06-15] MEDS: Carvedilol 3.125 MG TAB PO SCH ×2 (12:50→16:40)
[2020-06-15] MEDS: Famotidine 20 MG TAB PO SCH (12:51)
[2020-06-15] MEDS: Cholecalciferol 1,000 UNITS (25 MCG) TAB PO SCH (12:51)
[2020-06-15] MEDS: Furosemide 20 MG TAB PO SCH (12:51)
[2020-06-15] MEDS: Oxybutynin 5 MG TAB PO SCH ×2 (12:51→20:42)
[2020-06-15] MEDS: Gabapentin 400 MG CAP PO SCH (12:51)
[2020-06-15] MEDS: Allopurinol 100 MG TAB PO SCH (12:52)
[2020-06-15] MEDS: Aspirin Chewable 81 MG TAB PO SCH (12:52)
[2020-06-15] MEDS: Clopidogrel Bisulfate 75 MG TAB PO SCH (12:52)
[2020-06-15] MEDS: predniSONE 5 MG TAB PO SCH (12:58)
[2020-06-15] MEDS: Acetaminophen/Codeine 30-300mg Tablet PO PRN ×2 (16:40→23:50)
[2020-06-15] MEDS: Atorvastatin Calcium 40 MG TAB PO SCH (20:42)
[2020-06-16] MEDS ORDERED: Morphine 2 MG/ML VIAL SLOW IVP PRN (00:17)
[2020-06-16] MEDS: Levothyroxine Sodium 75 MCG TAB PO SCH (05:51)
[2020-06-16] MEDS: Arformoterol 15 MCG/2 ML NEB NEB SCH (06:27)
[2020-06-16 06:28] LABS: #Eosinphils 0.4 thou/uL (0.0-0.7); #Lymphocytes 1.8 thou/uL (1.20-3.40); #Monocytes 1.1 thou/uL (0.11-0.59); #Neutrophils 5.5 thou/uL (1.40-6.50); %Basophils 0.1 % (0.0-1.0); %Eosinophils 4.4 % (0.0-10.0); %Lymphocytes 20.4 % (21.0-51.0); %Monocytes 12.5 % (0.0-10.0); %Neutrophils 62.6 % (42.0-75.0); Hemoglobin 9.3 g/dL (12.0-16.0); Mean Corpuscular HGB CONC 29.7 g/dL (32.0-36.0); Mean Corpuscular Hemoglobin 31.1 pg (27.0-31.0); Mean Platelet Volume 9.4 fL (7.4-10.4); Platelet Count 149 thou/uL (130-400); RBC Distribution Width 13.6 % (11.5-14.5); White Blood Cell (WBC) Count 8.8 thou/uL (4.8-10.8)
[2020-06-16] MEDS: Mometasone 200 MCG/Formoterol 5 MCG 120 PUFF INHALER INH SCH ×2 (06:30→19:58)
[2020-06-16 06:42] LABS: Anion Gap 15 mmol/L (10-20); BUN (Urea Nitrogen) 41 mg/dL (9.8-20.1); Calc. Creatinine Clearance 58 mL/min (70-130); Carbon Dioxide 29 mmol/L (23-31); Chloride 100 mmol/L (98-107); Glucose 114 mg/dL (83-110); Potassium 4.4 mmol/L (3.5-5.1); Sodium 140 mmol/L (136-145)
[2020-06-16] MEDS: Cholecalciferol 1,000 UNITS (25 MCG) TAB PO SCH (08:43)
[2020-06-16] MEDS: Carvedilol 3.125 MG TAB PO SCH ×2 (08:43→16:06)
[2020-06-16] MEDS: Aspirin Chewable 81 MG TAB PO SCH (08:43)
[2020-06-16] MEDS: Famotidine 20 MG TAB PO SCH (08:43)
[2020-06-16] MEDS: Gabapentin 400 MG CAP PO SCH (08:44)
[2020-06-16] MEDS: Oxybutynin 5 MG TAB PO SCH ×2 (08:44→20:30)
[2020-06-16] MEDS: Clopidogrel Bisulfate 75 MG TAB PO SCH (08:44)
[2020-06-16] MEDS: Allopurinol 100 MG TAB PO SCH (08:44)
[2020-06-16] MEDS: Furosemide 20 MG TAB PO SCH (08:44)
[2020-06-16] MEDS: hydrALAZINE 25 MG TAB PO SCH ×3 (08:44→20:30)
[2020-06-16] MEDS: Atorvastatin Calcium 40 MG TAB PO SCH (20:30)
[2020-06-17] MEDS: Arformoterol 15 MCG/2 ML NEB NEB SCH ×2 (00:22→06:47)
[2020-06-17] MEDS: Levothyroxine Sodium 75 MCG TAB PO SCH (06:03)
[2020-06-17] MEDS: Acetaminophen/Codeine 30-300mg Tablet PO PRN ×2 (06:13→13:49)
[2020-06-17 06:28] LABS: #Eosinphils 0.4 thou/uL (0.0-0.7); #Lymphocytes 1.5 thou/uL (1.20-3.40); #Neutrophils 5.6 thou/uL (1.40-6.50); %Basophils 0.2 % (0.0-1.0); %Eosinophils 4.3 % (0.0-10.0); %Lymphocytes 17.4 % (21.0-51.0); %Monocytes 11.5 % (0.0-10.0); %Neutrophils 66.5 % (42.0-75.0); Hemoglobin 9.2 g/dL (12.0-16.0); Mean Corpuscular HGB CONC 29.4 g/dL (32.0-36.0); Mean Corpuscular Hemoglobin 31.3 pg (27.0-31.0); Mean Platelet Volume 9.2 fL (7.4-10.4); Platelet Count 144 thou/uL (130-400); RBC Distribution Width 13.3 % (11.5-14.5); Red Blood Cell (RBC) Count 2.94 mill/uL (4.20-5.40); White Blood Cell (WBC) Count 8.5 thou/uL (4.8-10.8)
[2020-06-17] MEDS: Mometasone 200 MCG/Formoterol 5 MCG 120 PUFF INHALER INH SCH (06:49)
[2020-06-17 06:51] LABS: Anion Gap 11 mmol/L (10-20); BUN (Urea Nitrogen) 42 mg/dL (9.8-20.1); Calc. Creatinine Clearance 53 mL/min (70-130); Calcium 9.3 mg/dL (7.8-10.44); Carbon Dioxide 35 mmol/L (23-31); Chloride 101 mmol/L (98-107); Glucose 87 mg/dL (83-110); Potassium 4.5 mmol/L (3.5-5.1); Sodium 142 mmol/L (136-145)
[2020-06-17] MEDS: Carvedilol 3.125 MG TAB PO SCH ×2 (08:14→20:03)
[2020-06-17] MEDS: Famotidine 20 MG TAB PO SCH (08:16)
[2020-06-17] MEDS: Aspirin Chewable 81 MG TAB PO SCH (10:07)
[2020-06-17] MEDS: Cholecalciferol 1,000 UNITS (25 MCG) TAB PO SCH (10:07)
[2020-06-17] MEDS: Clopidogrel Bisulfate 75 MG TAB PO SCH (10:07)
[2020-06-17] MEDS: Allopurinol 100 MG TAB PO SCH (10:08)
[2020-06-17] MEDS: Gabapentin 400 MG CAP PO SCH (10:08)
[2020-06-17] MEDS: Oxybutynin 5 MG TAB PO SCH ×2 (10:08→20:04)
[2020-06-17] MEDS: Furosemide 20 MG TAB PO SCH (10:09)
[2020-06-17] MEDS: hydrALAZINE 25 MG TAB PO SCH ×3 (10:10→20:03)
[2020-06-17] MEDS ORDERED: Heparin 10,000 UNITS/ 10 ML VIAL ONE (13:38)
[2020-06-17] MEDS: Senokot S 8.6-50 MG TAB PO SCH (20:03)
[2020-06-17] MEDS: Atorvastatin Calcium 40 MG TAB PO SCH (20:03)
[2020-06-18] MEDS: Arformoterol 15 MCG/2 ML NEB NEB SCH ×3 (00:12→21:04)
[2020-06-18] MEDS: Mometasone 200 MCG/Formoterol 5 MCG 120 PUFF INHALER INH SCH ×3 (00:13→21:04)
[2020-06-18 05:56] LABS: #Basophils 0.1 thou/uL (0.0-0.2); #Eosinphils 0.4 thou/uL (0.0-0.7); #Lymphocytes 1.4 thou/uL (1.20-3.40); #Monocytes 1.1 thou/uL (0.11-0.59); %Eosinophils 4.3 % (0.0-10.0); %Lymphocytes 15.4 % (21.0-51.0); %Monocytes 11.9 % (0.0-10.0); %Neutrophils 67.3 % (42.0-75.0); Hemoglobin 9.3 g/dL (12.0-16.0); Mean Corpuscular HGB CONC 30.2 g/dL (32.0-36.0); Mean Corpuscular Hemoglobin 32.1 pg (27.0-31.0); Mean Platelet Volume 9.4 fL (7.4-10.4); Platelet Count 135 thou/uL (130-400); RBC Distribution Width 13.2 % (11.5-14.5); Red Blood Cell (RBC) Count 2.89 mill/uL (4.20-5.40); White Blood Cell (WBC) Count 8.9 thou/uL (4.8-10.8)
[2020-06-18 06:12] LABS: Anion Gap 12 mmol/L (10-20); BUN (Urea Nitrogen) 28 mg/dL (9.8-20.1); Calc. Creatinine Clearance 63 mL/min (70-130); Carbon Dioxide 31 mmol/L (23-31); Chloride 101 mmol/L (98-107); Glucose 100 mg/dL (83-110); Sodium 140 mmol/L (136-145)
[2020-06-18] MEDS: Levothyroxine Sodium 75 MCG TAB PO SCH (06:19)
[2020-06-18] MEDS: Furosemide 20 MG TAB PO SCH (08:53)
[2020-06-18] MEDS: hydrALAZINE 25 MG TAB PO SCH ×3 (08:53→20:09)
[2020-06-18] MEDS: Carvedilol 3.125 MG TAB PO SCH ×2 (08:53→17:41)
[2020-06-18] MEDS: Senokot S 8.6-50 MG TAB PO SCH ×2 (08:53→20:09)
[2020-06-18] MEDS: Gabapentin 400 MG CAP PO SCH (08:54)
[2020-06-18] MEDS: Famotidine 20 MG TAB PO SCH (08:54)
[2020-06-18] MEDS: Cholecalciferol 1,000 UNITS (25 MCG) TAB PO SCH (08:55)
[2020-06-18] MEDS: Clopidogrel Bisulfate 75 MG TAB PO SCH (08:55)
[2020-06-18] MEDS: Allopurinol 100 MG TAB PO SCH (08:55)
[2020-06-18] MEDS: Aspirin Chewable 81 MG TAB PO SCH (08:55)
[2020-06-18] MEDS: Oxybutynin 5 MG TAB PO SCH ×2 (08:55→20:09)
[2020-06-18] MEDS: Acetaminophen/Codeine 30-300mg Tablet PO PRN (09:17)
[2020-06-18] MEDS: Atorvastatin Calcium 40 MG TAB PO SCH (20:09)
[2020-06-19] MEDS: Levothyroxine Sodium 75 MCG TAB PO SCH (05:47)
[2020-06-19 06:50] LABS: Anion Gap 12 mmol/L (10-20); BUN (Urea Nitrogen) 32 mg/dL (9.8-20.1); Calc. Creatinine Clearance 49 mL/min (70-130); Calcium 9.4 mg/dL (7.8-10.44); Carbon Dioxide 32 mmol/L (23-31); Chloride 100 mmol/L (98-107); Glucose 84 mg/dL (83-110); Potassium 4.3 mmol/L (3.5-5.1); Sodium 140 mmol/L (136-145)
[2020-06-19] MEDS: Arformoterol 15 MCG/2 ML NEB NEB SCH ×2 (07:50→18:49)
[2020-06-19] MEDS: hydrALAZINE 25 MG TAB PO SCH ×3 (07:51→20:21)
[2020-06-19] MEDS: Mometasone 200 MCG/Formoterol 5 MCG 120 PUFF INHALER INH SCH ×2 (07:51→18:50)
[2020-06-19] MEDS: Acetaminophen/Codeine 30-300mg Tablet PO PRN (07:52)
[2020-06-19] MEDS: Clopidogrel Bisulfate 75 MG TAB PO SCH (07:52)
[2020-06-19] MEDS: Allopurinol 100 MG TAB PO SCH (07:52)
[2020-06-19] MEDS: Aspirin Chewable 81 MG TAB PO SCH (07:52)
[2020-06-19] MEDS: Furosemide 20 MG TAB PO SCH (07:52)
[2020-06-19] MEDS: Oxybutynin 5 MG TAB PO SCH ×2 (07:52→20:22)
[2020-06-19] MEDS: Senokot S 8.6-50 MG TAB PO SCH ×2 (07:52→20:21)
[2020-06-19] MEDS: Gabapentin 400 MG CAP PO SCH (07:53)
[2020-06-19] MEDS: Carvedilol 3.125 MG TAB PO SCH ×2 (07:54→16:24)
[2020-06-19] MEDS: Cholecalciferol 1,000 UNITS (25 MCG) TAB PO SCH (07:54)
[2020-06-19] MEDS: Famotidine 20 MG TAB PO SCH (09:03)
[2020-06-19] MEDS ORDERED: Calcium Carbonate 500 MG ChewTAB PO PRN (12:29)
[2020-06-19 19:35] VITALS: TEMP 98.8
[2020-06-19 20:22] VITALS: BP 147/75
[2020-06-19] MEDS: Atorvastatin Calcium 40 MG TAB PO SCH (20:22)
== END 2020-06-19 22:52 | DRG 280 ==
LOC: ERS 13:18 → ERHOLD 16:31 → CCU 17:42 → 2SE 06-06 09:27 → CCU 06-06 16:15 → IMCU/EMU 06-07 17:56 → T4-B 06-12 15:37 → T4-A 06-14 14:21
PROVIDERS: ADMIT Internal Medicine; ATTEND Family Medicine
PROC: 5A09557 Assistance with Respiratory Ventilation, Greater than 96 Consecutive Hours, Continuous Positive Airway Pressure (ICD-10-PCS; 2020-06-05)
PROC: 0JH60XZ Insertion of Tunneled Vascular Access Device into Chest Subcutaneous Tissue and Fascia, Open Approach (ICD-10-PCS; principal; 2020-06-14)
PROC: 05HM33Z Insertion of Infusion Device into Right Internal Jugular Vein, Percutaneous Approach (ICD-10-PCS; 2020-06-14)
PROC: 05H633Z Insertion of Infusion Device into Left Subclavian Vein, Percutaneous Approach (ICD-10-PCS; 2020-06-14)
PROC: 5A1D70Z Performance of Urinary Filtration, Intermittent, Less than 6 Hours Per Day (ICD-10-PCS; 2020-06-14)
DX: I13.2 Hypertensive heart and chronic kidney disease with heart failure and with stage 5 chronic kidney disease, or end stage renal disease (principal); J96.21 Acute and chronic respiratory failure with hypoxia; I21.4 Non-ST elevation (NSTEMI) myocardial infarction; I50.33 Acute on chronic diastolic (congestive) heart failure; N18.6 End stage renal disease; J96.22 Acute and chronic respiratory failure with hypercapnia; J44.1 Chronic obstructive pulmonary disease with (acute) exacerbation; E66.2 Morbid (severe) obesity with alveolar hypoventilation; J44.0 Chronic obstructive pulmonary disease with (acute) lower respiratory infection; N17.9 Acute kidney failure, unspecified; Z68.45 Body mass index [BMI] 70 or greater, adult; N18.30 Chronic kidney disease, stage 3 unspecified; Z66 Do not resuscitate; F32.9 Major depressive disorder, single episode, unspecified; E78.5 Hyperlipidemia, unspecified; K21.9 Gastro-esophageal reflux disease without esophagitis; E55.9 Vitamin D deficiency, unspecified; M10.9 Gout, unspecified; E53.8 Deficiency of other specified B group vitamins; D63.8 Anemia in other chronic diseases classified elsewhere; E87.5 Hyperkalemia; I27.20 Pulmonary hypertension, unspecified; D64.9 Anemia, unspecified; E78.00 Pure hypercholesterolemia, unspecified; E03.9 Hypothyroidism, unspecified; Z82.3 Family history of stroke; Z99.3 Dependence on wheelchair; Z79.82 Long term (current) use of aspirin; Z90.722 Acquired absence of ovaries, bilateral; Z99.81 Dependence on supplemental oxygen; Z79.52 Long term (current) use of systemic steroids; Z90.710 Acquired absence of both cervix and uterus; Z90.79 Acquired absence of other genital organ(s); Z99.89 Dependence on other enabling machines and devices; Z80.8 Family history of malignant neoplasm of other organs or systems; Z82.49 Family history of ischemic heart disease and other diseases of the circulatory system; Z86.73 Personal history of transient ischemic attack (TIA), and cerebral infarction without residual deficits
CPT/HCPCS: 0240U; 36415; 36416; 36600; 71045; 76770; 80048; 80053; 80061; 82553; 82805; 83605; 83690; 83735; 83880; 84484; 85014; 85018; 85025; 85049; 85379; 85730; 86580; 86704; 86706; 86803; 87340; 90935; 93005; 93306; 93798; 93970; 94640; 94660; 96372; 96374; C1751; C1752; G0257; J0690; J0696; J1644; J1650; J1940; J2001; J2250; J2704; J2720; J2920; J3490; J7512; J7620; S0020

== ENCOUNTER 2020-06-27 15:03 | Inpatient (IN) | payer MEDICARE, MEDICAID ==
[2020-06-27 16:02] LABS: #Eosinphils 0.2 thou/uL (0.0-0.7); #Lymphocytes 1.5 thou/uL (1.20-3.40); #Monocytes 0.6 thou/uL (0.11-0.59); #Neutrophils 5.2 thou/uL (1.40-6.50); %Basophils 0.3 % (0.0-1.0); %Eosinophils 3.2 % (0.0-10.0); %Lymphocytes 19.3 % (21.0-51.0); %Monocytes 7.8 % (0.0-10.0); %Neutrophils 69.4 % (42.0-75.0); Mean Corpuscular HGB CONC 30.1 g/dL (32.0-36.0); Mean Corpuscular Hemoglobin 32.1 pg (27.0-31.0); Mean Platelet Volume 8.5 fL (7.4-10.4); Platelet Count 154 thou/uL (130-400); Red Blood Cell (RBC) Count 3.42 mill/uL (4.20-5.40); White Blood Cell (WBC) Count 7.5 thou/uL (4.8-10.8)
[2020-06-27 16:31] LABS: ALT (SGPT) Less than 7 U/L (8-55); AST (SGOT) 14 U/L (5-34); Albumin 3.9 g/dL (3.4-4.8); Alkaline Phosphatase 70 U/L (40-110); Anion Gap 17 mmol/L (10-20); BUN (Urea Nitrogen) 39 mg/dL (9.8-20.1); Bilirubin, Total 0.7 mg/dL (0.2-1.2); Calc. Creatinine Clearance 0 mL/min (70-130); Calcium 9.9 mg/dL (7.8-10.44); Carbon Dioxide 27 mmol/L (23-31); Chloride 98 mmol/L (98-107); Globulin 4.2 g/dL (2.4-3.5); Glucose 92 mg/dL (83-110); Potassium 3.7 mmol/L (3.5-5.1); Protein, Total 8.1 g/dL (5.8-8.1); Sodium 138 mmol/L (136-145)
[2020-06-27 16:46] LABS: CKMB 1.4 ng/mL (0-6.6)
[2020-06-27 18:15] LABS: Bacteria/HPF 3+ HPF (None Seen); Bilirubin Negative (Negative); Blood, Urine 2+ (Negative); Clarity Extra Turbid (Clear); Glucose, Urine (Dipstick) Normal (Negative); Ketone, Urine Negative (Negative); Leukocyte 500 Leu/uL (Negative); Nitrite Negative (Negative); Protein, Urine (Dipstick) 100 mg/dL (Neg-Trace); Specific Gravity, Urine 1.012 (1.002-1.036); Urobilinogen Normal mg/dL (Less than 2); WBC/HPF Greater than 50 HPF (0-3); pH, Urine 5.5 (5.0-9.0)
[2020-06-27] MEDS ORDERED: cefTRIAXone\\ROCEPHIN 2 GM VIAL ONE (19:19)
[2020-06-27 19:50] LABS: Troponin I 0.203 ng/mL (< 0.028)
[2020-06-27] MEDS ORDERED: HYDROcodone/Acetaminophen 5/325 mg Tablet PO PRN (22:12)
[2020-06-27] MEDS ORDERED: Ondansetron ODT 4 MG TAB PO PRN (22:12)
[2020-06-27] MEDS ORDERED: Ondansetron PF 4 MG/2 ML Vial IVP PRN (22:12)
[2020-06-27 22:43] LABS: Troponin I 0.178 ng/mL (< 0.028)
[2020-06-28 04:55] LABS: Band 1 % (5-11); Eosinophils 1 % (0-10); Hemoglobin 10.4 g/dL (12.0-16.0); Hypochromia SLIGHT = 6-15 cells (100X) (0-5/hpf); Lymphocytes 17 % (21-51); MDiff Complete? YES; Macrocytosis SLIGHT = 6-15 cells (100X) (0-5/hpf); Mean Corpuscular HGB CONC 30.1 g/dL (32.0-36.0); Mean Corpuscular Hemoglobin 32.2 pg (27.0-31.0); Mean Platelet Volume 8.9 fL (7.4-10.4); Monocytes 10 % (0-10); Neutrophil 71 % (42-75); Nucleated RBC 1 % (0); Platelet Count 122 thou/uL (130-400); RBC Distribution Width 13.2 % (11.5-14.5); Red Blood Cell (RBC) Count 3.23 mill/uL (4.20-5.40)
[2020-06-28 05:22] LABS: SARS-CoV-2 PCR by NAA Not Detected (NotDetected)
[2020-06-28 08:04] LABS: Anion Gap 16 mmol/L (10-20); BUN (Urea Nitrogen) 44 mg/dL (9.8-20.1); Calc. Creatinine Clearance 36 mL/min (70-130); Calcium 9.7 mg/dL (7.8-10.44); Carbon Dioxide 29 mmol/L (23-31); Chloride 98 mmol/L (98-107); Glucose 90 mg/dL (83-110); Potassium 3.7 mmol/L (3.5-5.1); Sodium 139 mmol/L (136-145)
[2020-06-28 08:09] LABS: Troponin I 0.151 ng/mL (< 0.028)
[2020-06-28 08:19] LABS: Lactic Acid 0.7 mmol/L (0.5-2.2)
[2020-06-28 08:27] LABS: ALT (SGPT) Less than 7 U/L (8-55); AST (SGOT) 13 U/L (5-34); Albumin 3.6 g/dL (3.4-4.8); Alkaline Phosphatase 62 U/L (40-110); Anion Gap 17 mmol/L (10-20); BUN (Urea Nitrogen) 45 mg/dL (9.8-20.1); Bilirubin, Total 0.6 mg/dL (0.2-1.2); Calc. Creatinine Clearance 36 mL/min (70-130); Calcium 9.6 mg/dL (7.8-10.44); Carbon Dioxide 28 mmol/L (23-31); Chloride 99 mmol/L (98-107); Globulin 3.5 g/dL (2.4-3.5); Glucose 92 mg/dL (83-110); Potassium 3.8 mmol/L (3.5-5.1); Protein, Total 7.1 g/dL (5.8-8.1); Sodium 140 mmol/L (136-145)
[2020-06-28 08:57] LABS: Actual Bicarbonate (HCO3a) 35.5 mEq/L (22-28); Calcium, Ionized (arterial) 1.23 mmol/L (1.12-1.30); Carboxyhemoglobin (COHb) 0.6 gm% (0.0-3.0); Hemoglobin (Hb) 10.3 g/dL (12.0-16.0); O2 Tension (PaO2), arterial 70.9 mmHg (> 70.0); pH, Arterial 7.18 (7.35-7.45)
[2020-06-28 08:58] LABS: CO2 Tension 96.8 mmHg (35.0-45.0); Puncture Site RRA
[2020-06-28] MEDS: Enoxaparin Sodium 30 MG/0.3 ML SYRINGE SC SCH (09:58)
[2020-06-28 15:26] VITALS: BMI 69.3
[2020-06-28] MEDS: cefTRIAXone\\ROCEPHIN 1 GM in Sodium Chloride 0.9% 100 ML IVPB SCH (19:30)
[2020-06-28] MEDS ORDERED: Lorazepam 2 MG/ML VIAL SLOW IVP SCH (23:45)
[2020-06-29] MEDS ORDERED: Heparin 10,000 UNITS/ 10 ML VIAL ONE (11:15)
[2020-06-29 15:38] LABS: #Basophils 0.1 thou/uL (0.0-0.2); #Eosinphils 0.2 thou/uL (0.0-0.7); #Lymphocytes 0.8 thou/uL (1.20-3.40); #Monocytes 0.5 thou/uL (0.11-0.59); #Neutrophils 4.8 thou/uL (1.40-6.50); %Basophils 1.2 % (0.0-1.0); %Eosinophils 3.8 % (0.0-10.0); %Lymphocytes 12.8 % (21.0-51.0); %Monocytes 8.4 % (0.0-10.0); %Neutrophils 73.8 % (42.0-75.0); Hemoglobin 8.7 g/dL (12.0-16.0); Mean Corpuscular HGB CONC 28.6 g/dL (32.0-36.0); Mean Corpuscular Hemoglobin 31.2 pg (27.0-31.0); Mean Platelet Volume 8.7 fL (7.4-10.4); Platelet Count 157 thou/uL (130-400); RBC Distribution Width 12.9 % (11.5-14.5); White Blood Cell (WBC) Count 6.5 thou/uL (4.8-10.8)
[2020-06-29 15:57] LABS: Hypochromia SLIGHT = 6-15 cells (100X) (0-5/hpf); MDiff Complete? YES; Macrocytosis SLIGHT = 6-15 cells (100X) (0-5/hpf); Platelet Morphology Comment Appears Adequate; Polychromasia SLIGHT = 2-3 cells (100X) (0-2/hpf)
[2020-06-29 16:00] LABS: ALT (SGPT) Less than 7 U/L (8-55); AST (SGOT) 10 U/L (5-34); Albumin 3.8 g/dL (3.4-4.8); Alkaline Phosphatase 68 U/L (40-110); Anion Gap 13 mmol/L (10-20); BUN (Urea Nitrogen) 29 mg/dL (9.8-20.1); Bilirubin, Total 0.5 mg/dL (0.2-1.2); Calc. Creatinine Clearance 56 mL/min (70-130); Calcium 9.1 mg/dL (7.8-10.44); Carbon Dioxide 32 mmol/L (23-31); Chloride 98 mmol/L (98-107); Glucose 81 mg/dL (83-110); Potassium 3.7 mmol/L (3.5-5.1); Protein, Total 7.8 g/dL (5.8-8.1); Sodium 139 mmol/L (136-145)
[2020-06-29] MEDS: Enoxaparin Sodium 30 MG/0.3 ML SYRINGE SC SCH (18:26)
[2020-06-29] MEDS: cefTRIAXone\\ROCEPHIN 1 GM in Sodium Chloride 0.9% 100 ML IVPB SCH (19:25)
[2020-06-29] MEDS: Haloperidol Lactate 5 MG/ML VIAL SLOW IVP PRN (21:37)
[2020-06-30 08:24] LABS: Anion Gap 24 mmol/L (10-20); BUN (Urea Nitrogen) 36 mg/dL (9.8-20.1); Calc. Creatinine Clearance 46 mL/min (70-130); Calcium 9.7 mg/dL (7.8-10.44); Carbon Dioxide 18 mmol/L (23-31); Chloride 103 mmol/L (98-107); Glucose 86 mg/dL (83-110); Sodium 140 mmol/L (136-145)
[2020-06-30] MEDS: Enoxaparin Sodium 30 MG/0.3 ML SYRINGE SC SCH (08:31)
[2020-06-30 10:20] LABS: #Eosinphils 0.3 thou/uL (0.0-0.7); #Lymphocytes 1.4 thou/uL (1.20-3.40); #Monocytes 0.7 thou/uL (0.11-0.59); %Basophils 0.4 % (0.0-1.0); %Eosinophils 3.4 % (0.0-10.0); %Lymphocytes 18.3 % (21.0-51.0); %Monocytes 9.6 % (0.0-10.0); %Neutrophils 68.3 % (42.0-75.0); Mean Corpuscular HGB CONC 30.1 g/dL (32.0-36.0); Mean Platelet Volume 8.2 fL (7.4-10.4); Platelet Count 178 thou/uL (130-400); RBC Distribution Width 13.1 % (11.5-14.5); Red Blood Cell (RBC) Count 3.14 mill/uL (4.20-5.40); White Blood Cell (WBC) Count 7.4 thou/uL (4.8-10.8)
[2020-06-30] MEDS ORDERED: Polyethylene Glycol 3350 17 GM Packet PO PRN (12:30)
[2020-06-30] MEDS ORDERED: Bisacodyl 10 MG SUPP PR PRN (12:30)
[2020-06-30] MEDS: cefTRIAXone\\ROCEPHIN 1 GM in Sodium Chloride 0.9% 100 ML IVPB SCH (18:21)
[2020-07-01] MEDS: Haloperidol Lactate 5 MG/ML VIAL SLOW IVP PRN (02:24)
[2020-07-01] MEDS: Enoxaparin Sodium 30 MG/0.3 ML SYRINGE SC SCH (08:38)
[2020-07-01] MEDS: cefTRIAXone\\ROCEPHIN 1 GM in Sodium Chloride 0.9% 100 ML IVPB SCH (18:20)
[2020-07-02] MEDS: Enoxaparin Sodium 30 MG/0.3 ML SYRINGE SC SCH (08:43)
[2020-07-02] MEDS: Acetaminophen 325 MG TAB PO PRN (10:34)
[2020-07-02] MEDS: Haloperidol Lactate 5 MG/ML VIAL SLOW IVP PRN (10:38)
[2020-07-02] MEDS: cefTRIAXone\\ROCEPHIN 1 GM in Sodium Chloride 0.9% 100 ML IVPB SCH (18:05)
[2020-07-03] MEDS: Acetaminophen 325 MG TAB PO PRN (02:34)
[2020-07-03 07:30] VITALS: BP 125/70; TEMP 97.7
[2020-07-03] MEDS: Enoxaparin Sodium 30 MG/0.3 ML SYRINGE SC SCH (10:15)
== END 2020-07-03 15:12 | DRG 189 ==
LOC: ERS 15:03 → 2NO 18:53 → CCU 06-28 07:41 → T4-A 06-29 18:20
PROVIDERS: ADMIT Internal Medicine; ATTEND Internal Medicine
PROC: 5A09357 Assistance with Respiratory Ventilation, Less than 24 Consecutive Hours, Continuous Positive Airway Pressure (ICD-10-PCS; principal; 2020-06-28)
DX: J96.21 Acute and chronic respiratory failure with hypoxia (principal); N18.6 End stage renal disease; Z66 Do not resuscitate; Z20.822 Contact with and (suspected) exposure to COVID-19; Z51.5 Encounter for palliative care; G93.41 Metabolic encephalopathy; N39.0 Urinary tract infection, site not specified; E87.2 Acidosis; E66.2 Morbid (severe) obesity with alveolar hypoventilation; Z68.44 Body mass index [BMI] 60.0-69.9, adult; I13.11 Hypertensive heart and chronic kidney disease without heart failure, with stage 5 chronic kidney disease, or end stage renal disease; J96.22 Acute and chronic respiratory failure with hypercapnia; E03.9 Hypothyroidism, unspecified; M19.90 Unspecified osteoarthritis, unspecified site; J44.9 Chronic obstructive pulmonary disease, unspecified; E78.5 Hyperlipidemia, unspecified; E53.8 Deficiency of other specified B group vitamins; D63.1 Anemia in chronic kidney disease; I27.20 Pulmonary hypertension, unspecified; F32.9 Major depressive disorder, single episode, unspecified; K21.9 Gastro-esophageal reflux disease without esophagitis; Z74.01 Bed confinement status; Z90.710 Acquired absence of both cervix and uterus; Z79.01 Long term (current) use of anticoagulants; Z79.82 Long term (current) use of aspirin; Z79.51 Long term (current) use of inhaled steroids; Z79.899 Other long term (current) drug therapy; Z90.49 Acquired absence of other specified parts of digestive tract; Z99.2 Dependence on renal dialysis; Z78.1 Physical restraint status
CPT/HCPCS: 36415; 36416; 36600; 51701; 71045; 80048; 80053; 81003; 81015; 82140; 82553; 82805; 83605; 84484; 85025; 86140; 87086; 87635; 90935; 93005; 94660; 96365; G0257; J0696; J1630; J1644; J1650; J2060; J3490; U0003; U0005